=== PATIENT | male | born 1940 | race Caucasian/White ===

== ENCOUNTER 2024-07-26 19:12 | Inpatient (IN) ==
[2024-07-26 20:55] LABS: Basophils # (auto) 0.02 K/uL (0.00-0.20); Basophils % (auto) 0.4 %; Eosinophils # (auto) 0.07 K/uL (0.00-0.50); Eosinophils % (auto) 1.3 %; Hematocrit (blood only) 41.3 % (42.0-52.0); Hemoglobin 13.8 g/dl (14.0-18.0); Immature Granulocytes # (auto) 0.04 K/uL (0.01-0.20); Immature Granulocytes % (auto) 0.7 %; Mean Corpuscular Hemoglobin 32.2 pg (25.0-34.0); Mean Corpuscular Hgb Conc 33.4 g/dL (32.0-36.0); Mean Corpuscular Volume 96.5 fL (80.0-100.0); Mean Platelet Volume 11.3 fL (9.4-12.4); Monocytes # (auto) 0.69 K/uL (0.11-0.59); Monocytes % (auto) 12.6 %; Neutrophils # (auto) 4.05 K/uL (1.40-6.50); Platelet Count 101 K/uL (130-400); RDW Coefficient of Variation 13.3 % (11.5-14.5); RDW Standard Deviation 47.6 fL (36.4-46.3); Red Blood Count 4.28 M/uL (4.70-6.10); White Blood Count 5.47 K/ul (4.8-10.8)
[2024-07-26 21:10] LABS: BUN Creatinine Ratio 16.3 (10-20); Calcium 8.6 mg/dl (8.6-10.3); Creatinine Clr Calc Pharmacy 32.2 ml/min; Potassium 4.5 mmol/L (3.5-5.1)
--- NOTE | 2024-07-26 21:22 | XRay Report ---
Exam(s): XR HIP + PELVIS, 1 view EXAM: XR Left Hip With Pelvis When Performed, 2 or 3 Views CLINICAL HISTORY: hip fx. TECHNIQUE: Two or three views of the left hip with pelvis when performed. COMPARISON: No relevant prior studies available. FINDINGS: Bones/joints: Bilateral hip arthroplasties noted. No pelvic bone fracture identified. The left femoral stem component is well-seated in the proximal femur. There is a fracture involving the intertrochanteric region on the lateral projection image anteriorly and posteriorly. The intramedullary component extends 13.5 cm beyond the margin of the fracture. No dislocation. Soft tissues: Unremarkable. Incidental regional arterial calcification. IMPRESSION: 1. The left femoral stem component is well-seated in the proximal femur. There is a fracture involving the intertrochanteric region on the lateral projection image anteriorly and posteriorly. The intramedullary component extends 13.5 cm beyond the margin of the fracture. 2. Bilateral total hip arthroplasties. No dislocation. No pelvic bone fractures. Electronically signed by: Edwin Prabhakar MD 07/26/24 21:21 PM
--- NOTE | 2024-07-26 22:10 | History & Physical Report ---
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 Patient did not hit his head. Has significant pain on moving his left hip. Denies any headache. No sore throat or cough. Afebrile. No nausea. No chest pain or shortness of breath. No abdominal pain. Normal bowel and bladder movements. Before this episode he was ambulating okay. Closed fracture of left hip Status post mechanical fall Ct Scan: A left total hip arthroplasty is noted. There is a fracture involving the anterior cortex of the proximal femoral metaphysis. The intramedullary component is well-seated without loosening. The intramedullary femoral stem component extends approximately 10 cm distal to the margin of the fracture Pain control N.p.o. Gentle fluids Will hold Xarelto Ortho consult in a.m. for further recommendation CKD Creatinine is 2 Do not have baseline thinks he has chronically kidney disease but not sure Will follow repeat labs If any concern will get renal ultrasound and nephro consult Hypertension On amlodipine BPH On Flomax and finasteride Hyperlipidemia Fenofibrate Hypothyroidism On Synthyroid History of factor V deficiency History of DVTs ,last was several years ago Currently holding Xarelto DVT prophylaxis As per Ortho Disposition Medical floor Full code. 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 Patient did not hit his head. Has significant pain on moving his left hip. Denies any headache. No sore throat or cough. Afebrile. No nausea. No chest pain or shortness of breath. No abdominal pain. Normal bowel and bladder movements. Before this episode he was ambulating okay. Past medical history. As mentioned above Past surgical history. Bilateral hip surgeries Social history. Smokes cigars 1 or 2 daily for many years. Drinks 1 beer every day. Family history. Father had diabetes and heart disease. Allergies Allergy/AdvReac Type Severity Reaction Status Date / Time No Known Allergies Allergy Unverified 07/26/24 23:29 Home Medications Medication Instructions Recorded Confirmed Type amlodipine 10 mg tablet (Norvasc) 5 mg PO DAILY 07/26/24 07/26/24 History fenofibrate micronized 134 mg 134 mg PO DAILY 07/26/24 07/26/24 History capsule levothyroxine 100 mcg tablet 100 mcg PO DAILY 07/26/24 07/26/24 History rivaroxaban 10 mg tablet (Xarelto) 10 mg PO HS 07/26/24 07/26/24 History tamsulosin 0.4 mg capsule 0.4 mg PO BID 07/26/24 07/26/24 History finasteride 5 mg tablet 5 mg PO DAILY 07/27/24 07/27/24 History Past Med/Surg History Problem List (Updated 07/27/24 @ 00:51 by Lorena Rivera MD) Closed fracture of left hip (Acute) Social History Smoking Status: Current every day smoker Tobacco Type: Cigars Cigarettes Per Day: "couple" 2-3; Second Hand Exposure: Yes; Do You Dip or Chew Tobacco: No; Tobacco Cessation Education Requested by Patient: No Hx Alcohol Use: Yes Alcohol type: beer and wine Hx Substance Use: No Preferred Language: Kiswahili Communication Ability: Effective Director Of Education Required: No Beliefs That Will Affect Care: None Current Living Situation: Spouse Current Living Situation Comment: lives in [place] with Other Information That Helps Us Care for You: No Feels Safe at Home: Yes Assistive Devices: Cane Assistive Devices Comment: has b/l hearings aide, sent home with Review of Systems Review of Systems: All systems reviewed & are unremarkable except as noted in HPI & below Physical Exam Physical Exam: General- Not in distress Head- atraumatic Eyes- PERRL, EOMI. ENT- oropharynx clear Neck- supple, no JVD, no adenopathy. Lungs- clear to auscultation no wheezing or crackles Heart- regular rate and rhythm; no murmur, no gallop. Abdomen- normal bowel sounds, soft, nontender, no distension Extremities- no pretibial edema,no erythema seen, painful left leg movements Neuro- alert, oriented PERRL, EOMI; no facial palsy; no dysarthria; Results & Data Results & Data Vital Signs (Past 12 Hours) Vital Signs Temp Pulse Pulse Resp BP BP Pulse Ox 07/26/24 20:58 56 L 07/26/24 20:48 56 L 16 145/70 H 97 07/26/24 19:20 37.7 C H 65 20 163/79 H 100 O2 Del Method 07/26/24 20:58 07/26/24 20:48 Room Air 07/26/24 19:20 Room Air Diagnostic Findings Laboratory Results WBC 5.47 K/ul (4.8-10.8) 07/26/24 20:24 RBC 4.28 M/uL (4.70-6.10) L 07/26/24 20:24 Hgb 13.8 g/dl (14.0-18.0) L 07/26/24 20:24 Hct 41.3 % (42.0-52.0) L 07/26/24 20:24 MCV 96.5 fL (80.0-100.0) 07/26/24 20:24 MCH 32.2 pg (25.0-34.0) 07/26/24 20:24 MCHC 33.4 g/dL (32.0-36.0) 07/26/24 20:24 RDW Std Deviation 47.6 fL (36.4-46.3) H 07/26/24 20:24 RDW Coeff of Angeline 13.3 % (11.5-14.5) 07/26/24 20:24 Plt Count 101 K/uL (130-400) L 07/26/24 20:24 MPV 11.3 fL (9.4-12.4) 07/26/24 20:24 Immature Gran % (Auto) 0.7 % 07/26/24 20:24 Neut % (Auto) 74.0 % 07/26/24 20:24 Lymph % (Auto) 11.0 % 07/26/24 20:24 [place] % (Auto) 12.6 % 07/26/24 20:24 Eos % (Auto) 1.3 % 07/26/24 20:24 Baso % (Auto) 0.4 % 07/26/24 20:24 Neut # (Auto) 4.05 K/uL (1.40-6.50) 07/26/24 20:24 Lymph # (Auto) 0.60 K/uL (1.20-3.40) L 07/26/24 20:24 [place] # (Auto) 0.69 K/uL (0.11-0.59) H 07/26/24 20:24 Eos # (Auto) 0.07 K/uL (0.00-0.50) 07/26/24 20:24 Baso # (Auto) 0.02 K/uL (0.00-0.20) 07/26/24 20:24 Immature Gran # (Auto) 0.04 K/uL (0.01-0.20) 07/26/24 20:24 Sodium 137 mmol/L (136-145) 07/26/24 20:24 Potassium 4.5 mmol/L (3.5-5.1) 07/26/24 20:24 Chloride 103 mmol/L (98-107) 07/26/24 20:24 Carbon Dioxide 27 mmol/L (21-32) 07/26/24 20:24 Anion Gap 7 (3-11) 07/26/24 20:24 BUN 33 mg/dl (6-23) H 07/26/24 20:24 Creatinine 2.02 mg/dl (0.6-1.4) H 07/26/24 20:24 Est Cr Clr Drug Dosing 32.2 ml/min 07/26/24 20:24 eGFR 31.72 07/26/24 20:24 BUN/Creatinine Ratio 16.3 (10-20) 07/26/24 20:24 Glucose 105 mg/dl (70-99(Fasting)) H 07/26/24 20:24 Calcium 8.6 mg/dl (8.6-10.3) 07/26/24 20:24 Impressions Hip/Pelvis X-Ray 07/26/24 19:22 Exam(s): XR HIP + PELVIS, 1 view EXAM: XR Left Hip With Pelvis When Performed, 2 or 3 Views CLINICAL HISTORY: hip fx. TECHNIQUE: Two or three views of the left hip with pelvis when performed. COMPARISON: No relevant prior studies available. FINDINGS: Bones/joints: Bilateral hip arthroplasties noted. No pelvic bone fracture identified. The left femoral stem component is well-seated in the proximal femur. There is a fracture involving the intertrochanteric region on the lateral projection image anteriorly and posteriorly. The intramedullary component extends 13.5 cm beyond the margin of the fracture. No dislocation. Soft tissues: Unremarkable. Incidental regional arterial calcification. IMPRESSION: 1. The left femoral stem component is well-seated in the proximal femur. There is a fracture involving the intertrochanteric region on the lateral projection image anteriorly and posteriorly. The intramedullary component extends 13.5 cm beyond the margin of the fracture. 2. Bilateral total hip arthroplasties. No dislocation. No pelvic bone fractures. Electronically signed by: Edwin Prabhakar MD 07/26/24 21:21 PM Code Status & VTE Plan VTE Prophylaxis Plan VTE Prophylaxis will be ordered: Yes
--- NOTE | 2024-07-26 22:24 | CT Scan Report ---
Exam(s): CT LEFT HIP Without Contrast EXAM: CT Left Lower Extremity Without Intravenous Contrast, Hip CLINICAL HISTORY: fall, hip fracture, hardware. TECHNIQUE: Axial computed tomography images of the left hip without intravenous contrast. Automated exposure control was utilized for the study. A dose lowering technique was utilized adhering to the principles of ALARA. COMPARISON: No relevant prior studies available. FINDINGS: Bones/joints: A left total hip arthroplasty is noted. There is a fracture involving the anterior cortex of the proximal femoral metaphysis. The intramedullary component is well-seated without loosening. The intramedullary femoral stem component extends approximately 10 cm distal to the margin of the fracture (series 300; image 29). The femoral head component is well aligned with the acetabular component the acetabular component is intact. No definite left pelvic bone fracture. Soft tissues: No significant overlying soft tissue traumatic injury. No radiopaque foreign body or subcutaneous emphysema. IMPRESSION: A left total hip arthroplasty is noted. There is a fracture involving the anterior cortex of the proximal femoral metaphysis. The intramedullary component is well-seated without loosening. The intramedullary femoral stem component extends approximately 10 cm distal to the margin of the fracture (series 300; image 29). Electronically signed by: Edwin Prabhakar MD 07/26/24 22:23 PM
--- NOTE | 2024-07-26 22:53 | Emergency Department Note ---
Impression & Plan Closed fracture of left hip ED Provider Note NAME: ROSELINE WANG AGE: 84 SEX: M : 1940 ARRIVES VIA: Ambulance INFORMANT: Patient, ED PROVIDER(S): Lorena Rivera MD CHIEF COMPLAINT: Fall, left hip pain HPI: This an 84-year-old male presenting for left hip pain. Patient is visiting for [place] and was playing with his grandkids. He tripped on the carpet and fell onto his left hip. He is on Xarelto. He is not report any head injury, confusion nausea vomiting or LOC. He notes his hip does hurt. Able to move the hip but notes it is painful. He is unable to bear weight. ROS: See above HPI for pertinent positives & negatives. A total of 10 systems reviewed and were otherwise negative. PAST MEDICAL HISTORY: See Below PAST SURGICAL HISTORY: See Below FAMILY HISTORY: See Below SOCIAL HISTORY: See Below HOME MEDICATIONS: See Below ALLERGIES: See Below VITALS: See Below PHYSICAL EXAMINATION: General: resting comfortably in no acute distress Head: Normocephalic and atraumatic Eyes: Normal inspection, extraocular muscles intact Ear, nose, throat: Normal external exam Neck: Normal range of motion Respiratory: lungs clear to auscultation bilaterally Cardiovascular: Regular rate/rhythm, no murmur GI: soft, nontender, no guarding or rebound Extremities: Left hip tenderness to palpation, full range of motion with pain, 2+ pulses Neuro: The patient awake and alert, appropriately conversive, no focal deficits, symmetric faces Skin: Warm, dry, and intact MEDICAL DECISION MAKING: This is a 84-year-old male present for left hip pain. Consider hip fracture. Will do left hip x-ray. -X-ray as Independently interpreted by me does reveal a left hip fracture around the hardware, nondisplaced -Discussed care with Dr. Platt, orthopedic surgeon, who recommends CT of the hip for this acute fracture. Nonweightbearing and admission -Blood work is reviewed showing no significant leukocytosis or significant anemia. Creatinine 2.02 without clear baseline. -Patient [facility] with Dr. Angeles[facility] Differential diagnosis: Hip fracture, hematoma, pelvic fracture Independent History obtained from: Son, Diagnostics interpreted by me: ECG: None Cardiac Monitoring: An order was placed for continuous cardiac monitoring. The monitor shows a rate of 60 with sinus rhythm. Past Med/Surg History Problem List (Updated 07/27/24 @ 00:51 by Lorena Rivera MD) Closed fracture of left hip (Acute) Social History Smoking Status: Current every day smoker Tobacco Type: Cigars Cigarettes Per Day: "couple" 2-3; Second Hand Exposure: Yes; Do You Dip or Chew Tobacco: No; Tobacco Cessation Education Requested by Patient: No Hx Alcohol Use: Yes Alcohol type: beer and wine Hx Substance Use: No Preferred Language: Korean Communication Ability: Effective Oil Gauger Required: No Beliefs That Will Affect Care: None Current Living Situation: Spouse Current Living Situation Comment: lives in [place] with Other Information That Helps Us Care for You: No Feels Safe at Home: Yes Assistive Devices: Cane Assistive Devices Comment: has b/l hearings aide, sent home with Allergies Allergies Allergy/AdvReac Type Severity Reaction Status Date / Time No Known Allergies Allergy Unverified 07/26/24 23:29 Home Meds Home Medications Medication Instructions Recorded Confirmed amlodipine 10 mg tablet (Norvasc) 5 mg PO DAILY 07/26/24 07/26/24 fenofibrate micronized 134 mg 134 mg PO DAILY 07/26/24 07/26/24 capsule fenofibric acid (choline) 135 mg 5 mg PO DAILY 07/26/24 07/26/24 capsule,delayed release levothyroxine 100 mcg tablet 100 mcg PO DAILY 07/26/24 07/26/24 rivaroxaban 10 mg tablet (Xarelto) 10 mg PO HS 07/26/24 07/26/24 tamsulosin 0.4 mg capsule 0.4 mg PO BID 07/26/24 07/26/24 Results & Data (ED) Vital Signs Vital Signs - 24 hr 07/26/24 19:20 07/26/24 20:48 07/26/24 20:58 Temperature 37.7 C H Temperature Source Oral Pulse Rate 65 56 L Pulse Rate [Apical] 56 L Respiratory Rate 20 16 Respiratory Effort / Characteristics Non-Labored Spontaneous Respiratory Depth Normal Respiratory Pattern Regular Blood Pressure 163/79 H Blood Pressure [Right Arm] 145/70 H Blood Pressure Mean 107 Blood Pressure Mean [Right Arm] 95 Blood Pressure Position [Right Arm] Lying Pulse Oximetry 100 97 Oxygen Delivery Method Room Air Room Air Sepsis Recent Fever Within 48 Hours Yes Sepsis New/Unexplained Change in Mental Status No Sepsis Action Taken by Nursing No Action Required Laboratory Data 07/26/24 20:24 07/26/24 20:24 Lab Results 07/26/24 Range/Units 20:24 WBC 5.47 (4.8-10.8) K/ul RBC 4.28 L (4.70-6.10) M/uL Hgb 13.8 L (14.0-18.0) g/dl Hct 41.3 L (42.0-52.0) % MCV 96.5 (80.0-100.0) fL MCH 32.2 (25.0-34.0) pg MCHC 33.4 (32.0-36.0) g/dL RDW Std Deviation 47.6 H (36.4-46.3) fL RDW Coeff of Angeline 13.3 (11.5-14.5) % Plt Count 101 L (130-400) K/uL MPV 11.3 (9.4-12.4) fL Immature Gran % (Auto) 0.7 % Neut % (Auto) 74.0 % Lymph % (Auto) 11.0 % [place] % (Auto) 12.6 % Eos % (Auto) 1.3 % Baso % (Auto) 0.4 % Neut # (Auto) 4.05 (1.40-6.50) K/uL Lymph # (Auto) 0.60 L (1.20-3.40) K/uL [place] # (Auto) 0.69 H (0.11-0.59) K/uL Eos # (Auto) 0.07 (0.00-0.50) K/uL Baso # (Auto) 0.02 (0.00-0.20) K/uL Immature Gran # (Auto) 0.04 (0.01-0.20) K/uL Sodium 137 (136-145) mmol/L Potassium 4.5 (3.5-5.1) mmol/L Chloride 103 (98-107) mmol/L Carbon Dioxide 27 (21-32) mmol/L Anion Gap 7 (3-11) BUN 33 H (6-23) mg/dl Creatinine 2.02 H (0.6-1.4) mg/dl Est Cr Clr Drug Dosing 32.2 ml/min eGFR 31.72 BUN/Creatinine Ratio 16.3 (10-20) Glucose 105 H (70-99(Fasting)) mg/dl Calcium 8.6 (8.6-10.3) mg/dl Administered Medications Sodium Chloride (Nss) 1,000 mls @ 100 mls/hr IV .Q10H ELIA Stop: 07/27/24 19:25 Last Admin: 07/26/24 23:50 Dose: 100 mls/hr Documented By: [facility] Miscellaneous (Order Awaiting Action: Fenofibrate Micronized 134 Mg Capsule) 1 each N/A QS ELIA Stop: 08/26/24 00:00 Last Admin: 07/27/24 00:00 Dose: Not Given Documented By: [facility] Imaging Data Radiologist's Impression: Hip/Pelvis X-Ray 07/26/24 19:22 Exam(s): XR HIP + PELVIS, 1 view EXAM: XR Left Hip With Pelvis When Performed, 2 or 3 Views CLINICAL HISTORY: hip fx. TECHNIQUE: Two or three views of the left hip with pelvis when performed. COMPARISON: No relevant prior studies available. FINDINGS: Bones/joints: Bilateral hip arthroplasties noted. No pelvic bone fracture identified. The left femoral stem component is well-seated in the proximal femur. There is a fracture involving the intertrochanteric region on the lateral projection image anteriorly and posteriorly. The intramedullary component extends 13.5 cm beyond the margin of the fracture. No dislocation. Soft tissues: Unremarkable. Incidental regional arterial calcification. IMPRESSION: 1. The left femoral stem component is well-seated in the proximal femur. There is a fracture involving the intertrochanteric region on the lateral projection image anteriorly and posteriorly. The intramedullary component extends 13.5 cm beyond the margin of the fracture. 2. Bilateral total hip arthroplasties. No dislocation. No pelvic bone fractures. Electronically signed by: Edwin Prabhakar MD 07/26/24 21:[address] 07/26/24 21:07 Exam(s): CT LEFT HIP Without Contrast EXAM: CT Left Lower Extremity Without Intravenous Contrast, Hip CLINICAL HISTORY: fall, hip fracture, hardware. TECHNIQUE: Axial computed tomography images of the left hip without intravenous contrast. Automated exposure control was utilized for the study. A dose lowering technique was utilized adhering to the principles of ALARA. COMPARISON: No relevant prior studies available. FINDINGS: Bones/joints: A left total hip arthroplasty is noted. There is a fracture involving the anterior cortex of the proximal femoral metaphysis. The intramedullary component is well-seated without loosening. The intramedullary femoral stem component extends approximately 10 cm distal to the margin of the fracture (series 300; image 29). The femoral head component is well aligned with the acetabular component the acetabular component is intact. No definite left pelvic bone fracture. Soft tissues: No significant overlying soft tissue traumatic injury. No radiopaque foreign body or subcutaneous emphysema. IMPRESSION: A left total hip arthroplasty is noted. There is a fracture involving the anterior cortex of the proximal femoral metaphysis. The intramedullary component is well-seated without loosening. The intramedullary femoral stem component extends approximately 10 cm distal to the margin of the fracture (series 300; image 29). Electronically signed by: Edwin Prabhakar MD 07/26/24 22:23 PM Discharge Plan Visit Data Chief Complaint: Fall Stated Complaint: fall ED Provider: Lorena Rivera Discharge Problem: Closed fracture of left hip Patient Disposition: Admitted As Inpatient Discharge Instructions Interventions: ED Discharge Assessment Last Done: 07/26/24 22:53
[2024-07-26] MEDS ORDERED: HYDROmorphone INJ 0.5 MG/0.5 ML SYR IV PRN (23:26)
[2024-07-26] MEDS ORDERED: POLYETHYLENE (MIRALAX) 17 GM PACK PO PRN (23:26)
[2024-07-26] MEDS: SODIUM CHLORIDE 0.9% 1,000 ML IV SCH (23:50)
[2024-07-27] MEDS: LEVOTHYROXINE SODIUM 100 MCG TABLET PO SCH (05:33)
[2024-07-27 08:09] LABS: BUN Creatinine Ratio 17.2 (10-20); Calcium 8.2 mg/dl (8.6-10.3); Creatinine Clr Calc Pharmacy 40.9 ml/min; Magnesium 1.6 mg/dl (1.7-2.4); Potassium 3.6 mmol/L (3.5-5.1)
--- NOTE | 2024-07-27 08:37 | XRay Report ---
XR chest 1V portable HISTORY: 84 years-old Male preop? Preoperative exam. COMPARISON: None TECHNIQUE: AP view the chest FINDINGS: Cardiomediastinal and hilar silhouettes are within normal limits. No pneumothorax, pleural effusion, airspace consolidation or overt pulmonary edema. There is mild coarsening of interstitium which is li wild on a chronic basis. Spondylitic spurring of the spine. IMPRESSION: No acute process. ACT 112: Negative or not required by law. The above report was generated using voice recognition software. It may contain grammatical, syntax o r spelling errors. Electronically signed by: Stephon Ceballos M.D. 07/27/2024 8:36 AM
[2024-07-27 08:41] LABS: Hematocrit (blood only) 37.7 % (42.0-52.0); Mean Corpuscular Hemoglobin 33.1 pg (25.0-34.0); Mean Corpuscular Hgb Conc 34.5 g/dL (32.0-36.0); Mean Corpuscular Volume 95.9 fL (80.0-100.0); RDW Coefficient of Variation 13.1 % (11.5-14.5); RDW Standard Deviation 46.9 fL (36.4-46.3); Red Blood Count 3.93 M/uL (4.70-6.10); White Blood Count 5.11 K/ul (4.8-10.8)
[2024-07-27 08:44] LABS: Basophils # (auto) 0.02 K/uL (0.00-0.20); Basophils % (auto) 0.4 %; Eosinophils # (auto) 0.08 K/uL (0.00-0.50); Eosinophils % (auto) 1.6 %; Immature Granulocytes # (auto) 0.02 K/uL (0.01-0.20); Immature Granulocytes % (auto) 0.4 %; Lymphocytes # (auto) 0.93 K/uL (1.20-3.40); Lymphocytes % (auto) 18.2 %; Mean Platelet Volume 11.1 fL (9.4-12.4); Monocytes # (auto) 0.72 K/uL (0.11-0.59); Monocytes % (auto) 14.1 %; Neutrophils # (auto) 3.34 K/uL (1.40-6.50); Neutrophils % (auto) 65.3 %; Platelet Count 98 K/uL (130-400); Platelet Estimate Decreased (Normal)
[2024-07-27] MEDS: amLODIPine BESYLATE 5 MG TAB PO SCH (09:04)
[2024-07-27] MEDS: MAGNESIUM SULFATE / D5W 1 GM/100 ML BAG IV SCH (10:19)
--- NOTE | 2024-07-27 10:22 | Orthopedic Consultation ---
Date of Consultation July 27, 2024 Assessment & Plan (1) Trochanteric fracture of left femur: The patient and his son were educated regarding today's findings. I reviewed the imaging with both of them. He has good positioning at this time. No surgical intervention is required. He may be weightbearing as tolerated on the leg. Given his current level discomfort, I do not expect him to start with much weight. He may start with PT/OT. He will likely require placement at a [facility] facility or rehab hospital. He is unsure if this should be done closer to home in [place] or here locally. I think that it would be best to start here and perhaps transition to [place] for home health once he is stronger and can ambulate more reliably. Continue with ice on the area. Continue with oral pain medication. He will need to start his Xarelto check with Dr. Platt regarding appropriate start date. Continue his usual total precautions. History of Present Illness Reason for Consultation: Left hip trochanteric fracture Attending Physician: Charlie Galaviz MD History of Present Illness This 84-year-old male is seen today in his room. His son is in attendance. The patient was visiting from [place] for holiday, and was chasing his grandkids through the house yesterday. He tripped on a rug and fell onto his left side. There was immediate onset of pain and he was unable to bear weight. He was brought to the ED for evaluation. Radiographic imaging of the left hip was obtained along with CT scan. It showed a nondisplaced periprosthetic trochanteric fracture. He was admitted for pain control and ambulation difficulty. The patient states his left hip replacement was done in 2014 in the ER. He also has a right total hip arthroplasty done in 2003. He had no problems with the left hip until yesterday. He continues to have difficulty with motion. He denies any numbness or tingling. No other areas of discomfort. Allergies Allergy/AdvReac Type Severity Reaction Status Date / Time No Known Allergies Allergy Unverified 07/26/24 23:29 Home Medications Medication Instructions Recorded Confirmed Type amlodipine 10 mg tablet (Norvasc) 5 mg PO DAILY 07/26/24 07/26/24 History fenofibrate micronized 134 mg 134 mg PO DAILY 07/26/24 07/26/24 History capsule levothyroxine 100 mcg tablet 100 mcg PO DAILY 07/26/24 07/26/24 History rivaroxaban 10 mg tablet (Xarelto) 10 mg PO HS 07/26/24 07/26/24 History tamsulosin 0.4 mg capsule 0.4 mg PO BID 07/26/24 07/26/24 History finasteride 5 mg tablet 5 mg PO DAILY 07/27/24 07/27/24 History Patient History Medical History (Updated 07/27/24 @ 10:19 by Romeo Lao PA-C) Hypothyroidism BPH (benign prostatic hyperplasia) Factor V deficiency Surgical History (Updated 07/27/24 @ 10:14 by Romeo Lao PA-C) H/O total hip arthroplasty bilateral R 2003, L 2014 Family History (Updated 07/27/24 @ 10:14 by Romeo Lao PA-C) Other No pertinent family history Social History Smoking Status: Current every day smoker Tobacco Type: Cigars Cigarettes Per Day: "couple" 2-3; Second Hand Exposure: Yes; Do You Dip or Chew Tobacco: No; Tobacco Cessation Education Requested by Patient: No Hx Alcohol Use: Yes Alcohol type: beer and wine Hx Substance Use: No Preferred Language: Northern Irish Communication Ability: Effective Boomswing Operator Required: No Beliefs That Will Affect Care: None Current Living Situation: Spouse Current Living Situation Comment: lives in [place] with Other Information That Helps Us Care for You: No Feels Safe at Home: Yes Assistive Devices: Cane Assistive Devices Comment: has b/l hearings aide, sent home with Review of Systems Review of Systems: All systems reviewed & are unremarkable except as noted in HPI & below Physical Exam Physical Exam: General: Well-developed, well-nourished, elderly male, in no acute distress. No obvious discomfort. Sitting in the bed. Alert and oriented. Skin: Warm dry with good turgor. No rashes. He has ecchymosis present over the left gluteus. No open wounds. No erythema. No significant edema. Musculoskeletal: Left hip evaluation reveals no obvious asymmetry or deformity. He has focal discomfort with palpation over the greater trochanter, IT band, and quadricep musculature. No pain with palpation around his left knee lower leg, or ankle. He has supple motion of the left ankle and toes. Strength is 5/5 for resisted flexion and extension as well as inversion. There is limited knee motion secondary to pain at the hip. He also has limited hip motion for flexion and extension secondary to hip discomfort. He has very little discomfort with logrolling of the hip. Neurologic: Gross sensation is intact across the left leg by soft touch. Peripheral pulses are 2+. Results & Data Vital Signs (Past 12 Hours) Vital Signs Temp Pulse Pulse Resp BP BP Pulse Ox 07/27/24 07:20 36.8 C 57 L 18 139/65 97 07/27/24 00:08 07/26/24 23:26 36.8 C 60 17 165/68 H 97 07/26/24 22:53 07/26/24 22:53 90 18 137/65 96 O2 Del Method 07/27/24 07:20 Room Air 07/27/24 00:08 Room Air 07/26/24 23:26 Room Air 07/26/24 22:53 Room Air 07/26/24 22:53 Room Air Laboratory Results CBC obtained today shows a normal white count of 5.11. H&H of 13.0 and 37.3. Low platelets have 98,000. PRP shows normal sodium and potassium as well as chloride. BUN of 26 with creatinine 1.5. Glucose normal at 99. Magnesium normal at 1.6. Diagnostic Findings Regular radiographic imaging obtained overnight shows a minimally displaced trochanteric fracture. There is no abnormality of the implant itself. He appears to have a constrained liner, but not on the other side. CT scan imaging of the pelvis and hip was also reviewed. It confirms a minimally displaced trochanteric fracture with involvement of the femoral shaft. There is no abnormality of the implant itself. (1) Trochanteric fracture of left femur Encounter type: initial encounter Fracture type: closed Qualified Code(s): S72.102A - Unspecified trochanteric fracture of left femur, initial encounter for closed fracture
--- NOTE | 2024-07-27 11:12 | Electrocardiogram Report ---
Test Reason : Blood Pressure : */* mmHG Vent. Rate : 62 BPM Atrial Rate : 62 BPM P-R Int : 168 ms QRS Dur : 88 ms QT Int : 420 ms P-R-T Axes : 51 -6 32 degrees QTcB Int : 426 ms Normal sinus rhythm Low voltage QRS Borderline ECG No previous ECGs available Confirmed by Guerrero Turner ([id number]) on 07/27/2024 11:12:22 AM Referred By: REFERRED SELF Confirmed By: Guerrero Turner
[2024-07-27] MEDS: FINASTERIDE 5 MG TAB PO SCH (11:37)
--- NOTE | 2024-07-27 13:21 | Hospitalist Progress Note ---
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 Patient did not hit his head. Has significant pain on moving his left hip. Denies any headache. No sore throat or cough. Afebrile. No nausea. No chest pain or shortness of breath. No abdominal pain. Normal bowel and bladder movements. Before this episode he was ambulating okay. Closed fracture of left hip Status post mechanical fall Ct Scan: A left total hip arthroplasty is noted. There is a fracture involving the anterior cortex of the proximal femoral metaphysis. The intramedullary component is well-seated without loosening. The intramedullary femoral stem component extends approximately 10 cm distal to the margin of the fracture Pain control N.p.o. Gentle fluids Will hold Xarelto Ortho consult in a.m. for further recommendation CKD Creatinine is 2 Do not have baseline thinks he has chronically kidney disease but not sure Will follow repeat labs If any concern will get renal ultrasound and nephro consult Hypertension On amlodipine BPH On Flomax and finasteride Hyperlipidemia Fenofibrate Hypothyroidism On Synthyroid History of factor V deficiency History of DVTs ,last was several years ago Currently holding Xarelto DVT prophylaxis As per Ortho Disposition Medical floor Full code. Admission and Anticipated Discharge Date Admission Date: July 26, 2024 Physical Exam Physical Exam: General- Not in distress Head- atraumatic Eyes- PERRL, EOMI. ENT- oropharynx clear Neck- supple, no JVD, no adenopathy. Lungs- clear to auscultation no wheezing or crackles Heart- regular rate and rhythm; no murmur, no gallop. Abdomen- normal bowel sounds, soft, nontender, no distension Extremities- no pretibial edema,no erythema seen, painful left leg movements Neuro- alert, oriented PERRL, EOMI; no facial palsy; no dysarthria; Results & Data Results & Data Vital Signs (Past 12 Hours) Vital Signs Temp Pulse Resp BP Pulse Ox O2 Del Method 07/27/24 07:20 36.8 C 57 L 18 139/65 97 Room Air
--- NOTE | 2024-07-27 13:56 | XRay Report ---
XR femur LT 2V routine CLINICAL HISTORY: pain TECHNIQUE: 2 radiographic views of the left femur were obtained. Comparison: Comparison is made to hip radiograph 07/26/2024 FINDINGS: There is no evidence of an acute fracture. Bilateral hip arthroplasties are seen. Vascular calcificat ions are noted. IMPRESSION: Bilateral hip arthroplasties are seen. No acute fracture. ACT 112: Negative or not required by law. Electronically signed by: Nahid Barboza M.D. 07/27/2024 1:55 PM
--- NOTE | 2024-07-27 14:14 | Hospitalist Progress Note ---
Date of Service July 27, 2024 Assessment & Plan (1) Closed fracture of left hip: Plan: 84 yo M w/ PMH of HTN, factor V deficiency, DVTs, BPH, HLD, hypothyroidism presents with mechanical fall and found to have a left periprosthetic fracture. Patient did not hit his head. Before this episode he was ambulating okay. He is being managed for the following: Closed fracture of left hip Status post mechanical fall Admitting CT scan of the left hip with fracture involving anterior cortex of the proximal femur, intramedullary component is well-seated without loosening. Continue with pain management, continue bowel regimen. Given history of actively deficiency, resumed Xarelto from today with close monitoring of H&H. Discussed with orthopedics, partial weight-bear approximately 50% using crutches or walker. No operative intervention at this time. PT/OT, possible DC to rehab. Follow-up with Ortho on discharge. Chronic kidney disease: Unknown status and unknown baseline. Admitting creatinine of 2.0, creatinine today 1.51. Will continue to follow creatinine daily or as needed. Other chronic medical conditions: Continue with/resume home meds as when able. Hypertension, continue home amlodipine BPH, continue home Flomax and finasteride Hyperlipidemia, continue home fenofibrate Hypothyroidism, continue home Synthroid Factor V deficiency, continue Xarelto DVT prophylaxis: Patient on Xarelto, monitor H&H. Disposition: PT/OT, CM to assist with DC planning. Full code Admission and Anticipated Discharge Date Admission Date: July 26, 2024 Subjective Patient was seen and examined at bedside. Patient was lying in bed, on room air, NAD. Patient reports left hip pain fairly under control, denies any febrile illness or flulike illness in the recent past. Patient denies any sore throat or chest pain or shortness of breath or pain / burning while passing urine. Physical Exam Physical Exam: General- Not in distress Head- atraumatic Eyes- PERRL, EOMI. ENT- oropharynx clear Neck- supple, no JVD, no adenopathy. Lungs- clear to auscultation no wheezing or crackles Heart- regular rate and rhythm; no murmur, no gallop. Abdomen- normal bowel sounds, soft, nontender, no distension Extremities- no pretibial edema,no erythema seen, painful left leg movements Neuro- alert, oriented PERRL, EOMI; no facial palsy; no dysarthria; Results & Data Results & Data Vital Signs (Past 12 Hours) Vital Signs Temp Pulse Resp BP Pulse Ox O2 Del Method 07/27/24 07:20 36.8 C 57 L 18 139/65 97 Room Air
[2024-07-27] MEDS: TAMSULOSIN HCL 0.4 MG CAP PO SCH (14:30)
[2024-07-27 14:42] LABS: Appearance Urine Clear (Clear); Bacteria Urine Automated 4+ (None Seen); Bilirubin Urine Negative (Negative); Blood Urine Negative (Negative); Cast Urine Automated 0-2 /lpf (0-2); Color Urine Yellow; Epithelial Cell Urine Auto 0-2 /hpf (0-2); Glucose Urine UA Negative (Negative); Ketones Urine Negative (Negative); Leukocyte Esterase Urine 2+ (Negative); Nitrite Urine Positive (Negative); Protein Urine Negative (Negative); RBC Urine Automated 0-2 /hpf (0-2); Urobilinogen Urine Negative (Negative); pH Urine 5.5 (4.5-7.5)
[2024-07-27] MEDS: cefTRIAXone SODIUM 2,000 MG/50 ML BAG IV SCH (17:11)
[2024-07-27] MEDS: ADVANCED PROBIOTIC 625 MG CAPSULE PO SCH (17:46)
[2024-07-27] MEDS: DOCUSATE SODIUM 100 MG CAP PO SCH (20:52)
[2024-07-27] MEDS: RIVAROXABAN 10 MG TABLET PO SCH (20:52)
[2024-07-28] MEDS: ACETAMINOPHEN 325 MG TAB PO PRN (08:00)
[2024-07-28 10:02] LABS: Hematocrit (blood only) 35.9 % (42.0-52.0); Hemoglobin 12.3 g/dl (14.0-18.0); Mean Corpuscular Hemoglobin 32.4 pg (25.0-34.0); Mean Corpuscular Hgb Conc 34.3 g/dL (32.0-36.0); Mean Corpuscular Volume 94.5 fL (80.0-100.0); Mean Platelet Volume 11.1 fL (9.4-12.4); Platelet Count 107 K/uL (130-400); RDW Standard Deviation 45.2 fL (36.4-46.3); White Blood Count 5.12 K/ul (4.8-10.8)
[2024-07-28 10:23] LABS: BUN Creatinine Ratio 17.3 (10-20); Calcium 7.8 mg/dl (8.6-10.3); Creatinine Clr Calc Pharmacy 41.2 ml/min; Phosphorus 2.1 mg/dl (2.5-4.9); Potassium 3.8 mmol/L (3.5-5.1)
--- NOTE | 2024-07-28 12:08 | Orthopedic Progress Note ---
Date of Service July 28, 2024 Assessment & Plan (1) Trochanteric fracture of left femur: Plan: The patient and his son were educated regarding today's findings. He has good positioning at this time. No surgical intervention is required. He may be PWB (50%)weightbearing on the leg. He may start with PT/OT. He will likely require placement at a long term facility or rehab hospital. He is unsure if this should be done closer to home in [place] or here locally. Continue with ice on the area. Continue with oral pain medication. He May resume his Xarelto today Continue his usual total precautions. Admission and Anticipated Discharge Date Admission Date: July 26, 2024 Subjective This 84-year-old male seen this morning for follow-up of left hip pain. X-rays performed of his femur showed no acute fracture in the area of discomfort. He does have documented periprosthetic fracture of the left greater trochanter. States that he has had difficulty getting up with physical therapy. He states that he has discomfort when he sits on the edge of the bed and lets his feet dangle. He denies chest pain, shortness of breath, fever, chills, sweats, nausea, vomiting, diarrhea or difficulty voiding. States his only issue is that he has been unable to move his bowels but has been passing gas. Review of Systems Review of Systems: All systems reviewed & are unremarkable except as noted in Subjective Physical Exam Physical Exam: Left lower extremity: Patient has tenderness palpation over the lateral aspect of the hip over the greater trochanter as well as over the anterolateral medial aspect of the distal femur. He does tolerate logroll testing. He has great difficulty performing a straight leg raise test but is able to actively dorsi and plantarflex foot. He tolerates knee flexion to about 60 degrees passively. His calf is soft and supple and nontender to palpation. He is able to detect light sensation to touch over the pads of his digits. His peripheral pulses are 1+. He is neurovascularly intact. Results & Data Vital Signs (Past 12 Hours) Vital Signs Temp Pulse Resp BP Pulse Ox O2 Del Method 07/28/24 07:35 Room Air 07/28/24 07:33 36.8 C 63 18 131/72 97 Room Air Diagnostic Findings Laboratory Results WBC 5.12 K/ul (4.8-10.8) 07/28/24 09:28 RBC 3.80 M/uL (4.70-6.10) L 07/28/24 09:28 Hgb 12.3 g/dl (14.0-18.0) L 07/28/24 09: Hct 35.9 % (42.0-52.0) L 07/28/24 09:28 MCV 94.5 fL (80.0-100.0) 07/28/24 09: MCH 32.4 pg (25.0-34.0) 07/28/24 09: MCHC 34.3 g/dL (32.0-36.0) 07/28/24 09: RDW Std Deviation 45.2 fL (36.4-46.3) 07/28/24: RDW Coeff of [place] 13.0 % (11.5-14.5) 07/28/24 09: Plt Count 107 K/uL (130-400) L 07/28/24 09: MPV 11.1 fL (9.4-12.4) 07/28/24 09:28 Immature Gran % (Auto) 0.4 % 07/27/24 07:05 Neut % (Auto) 65.3 % 07/27/24 07:05 Lymph % (Auto) 18.2 % 07/27/24 07:05 [place] % (Auto) 14.1 % 07/27/24 07:05 Eos % (Auto) 1.6 % 07/27/24 07:05 Baso % (Auto) 0.4 % 07/27/24 07:05 Neut # (Auto) 3.34 K/uL (1.40-6.50) 07/27/24 07:05 Lymph # (Auto) 0.93 K/uL (1.20-3.40) L 07/27/24 07:05 [place] # (Auto) 0.72 K/uL (0.11-0.59) H 07/27/24 07:05 Eos # (Auto) 0.08 K/uL (0.00-0.50) 07/27/24 07:05 Baso # (Auto) 0.02 K/uL (0.00-0.20) 07/27/24 07:05 Immature Gran # (Auto) 0.02 K/uL (0.01-0.20) 07/27/24 07:05 Platelet Estimate Decreased (Normal) L 07/27/24 07:05 Sodium 134 mmol/L (136-145) L 07/28/24 09:28 Potassium 3.8 mmol/L (3.5-5.1) 07/28/24 09:28 Chloride 103 mmol/L (98-107) 07/28/24 09:28 Carbon Dioxide 26 mmol/L (21-32) 07/28/24 09:28 Anion Gap 5 (3-11) 07/28/24 09:28 BUN 26 mg/dl (6-23) H 07/28/24 09:28 Creatinine 1.50 mg/dl (0.6-1.4) H 07/28/24 09:28 Est Cr Clr Drug Dosing 41.2 ml/min 07/28/24 09:28 eGFR 45.34 07/28/24 09:28 BUN/Creatinine Ratio 17.3 (10-20) 07/28/24 09:28 Glucose 152 mg/dl (70-99(Fasting)) H 07/28/24 09:28 Calcium 7.8 mg/dl (8.6-10.3) L 07/28/24 09:28 Phosphorus 2.1 mg/dl (2.5-4.9) L 07/28/24 09:28 Magnesium 2.0 mg/dl (1.7-2.4) 07/28/24 09:28 Urine Color Yellow 07/27/24 14:32 Urine Appearance Clear (Clear) 07/27/24 14:32 Urine pH 5.5 (4.5-7.5) 07/27/24 14:32 Ur Specific [place] 1.010 (1.000-1.030) 07/27/24 14:32 Urine Protein Negative (Negative) 07/27/24 14:32 Urine Glucose (UA) Negative (Negative) 07/27/24 14:32 Urine Ketones Negative (Negative) 07/27/24 14:32 Urine Blood Negative (Negative) 07/27/24 14: Urine Nitrite Positive (Negative) A 07/27/24 14:32 Urine Bilirubin Negative (Negative) 07/27/24 14: Urine Urobilinogen Negative (Negative) 07/27/24 14:32 Ur Leukocyte Esterase 2+ (Negative) H 07/27/24 14:32 Urine WBC (Auto) 11-20 /hpf (0-5) H 07/27/24 14:32 Urine RBC (Auto) 0-2 /hpf (0-2) 07/27/24 14:32 U Hyaline Cast (Auto) 0-2 /lpf (0-2) 07/27/24 14:32 U Epithel Cells (Auto) 0-2 /hpf (0-2) 07/27/24 14:32 Urine Bacteria (Auto) 4+ (None Seen) H 07/27/24 14:32 Impressions Hip/Pelvis X-Ray 07/26/24 19:22 Exam(s): XR HIP + PELVIS, 1 view EXAM: XR Left Hip With Pelvis When Performed, 2 or 3 Views CLINICAL HISTORY: hip fx. TECHNIQUE: Two or three views of the left hip with pelvis when performed. COMPARISON: No relevant prior studies available. FINDINGS: Bones/joints: Bilateral hip arthroplasties noted. No pelvic bone fracture identified. The left femoral stem component is well-seated in the proximal femur. There is a fracture involving the intertrochanteric region on the lateral projection image anteriorly and posteriorly. The intramedullary component extends 13.5 cm beyond the margin of the fracture. No dislocation. Soft tissues: Unremarkable. Incidental regional arterial calcification. IMPRESSION: 1. The left femoral stem component is well-seated in the proximal femur. There is a fracture involving the intertrochanteric region on the lateral projection image anteriorly and posteriorly. The intramedullary component extends 13.5 cm beyond the margin of the fracture. 2. Bilateral total hip arthroplasties. No dislocation. No pelvic bone fractures. Electronically signed by: Edwin Prabhakar MD 07/26/24 21:[address] 07/26/24 21:07 Exam(s): CT LEFT HIP Without Contrast EXAM: CT Left Lower Extremity Without Intravenous Contrast, Hip CLINICAL HISTORY: fall, hip fracture, hardware. TECHNIQUE: Axial computed tomography images of the left hip without intravenous contrast. Automated exposure control was utilized for the study. A dose lowering technique was utilized adhering to the principles of ALARA. COMPARISON: No relevant prior studies available. FINDINGS: Bones/joints: A left total hip arthroplasty is noted. There is a fracture involving the anterior cortex of the proximal femoral metaphysis. The intramedullary component is well-seated without loosening. The intramedullary femoral stem component extends approximately 10 cm distal to the margin of the fracture (series 300; image 29). The femoral head component is well aligned with the acetabular component the acetabular component is intact. No definite left pelvic bone fracture. Soft tissues: No significant overlying soft tissue traumatic injury. No radiopaque foreign body or subcutaneous emphysema. IMPRESSION: A left total hip arthroplasty is noted. There is a fracture involving the anterior cortex of the proximal femoral metaphysis. The intramedullary component is well-seated without loosening. The intramedullary femoral stem component extends approximately 10 cm distal to the margin of the fracture (series 300; image 29). Electronically signed by: Edwin Prabhakar MD 07/26/24 22:23 PM Chest X-Ray 07/27/24 08:06 XR chest 1V portable HISTORY: 84 years-old Male preop? Preoperative exam. COMPARISON: None TECHNIQUE: AP view the chest FINDINGS: Cardiomediastinal and hilar silhouettes are within normal limits. No pneumothorax, pleural effusion, airspace consolidation or overt pulmonary edema. There is mild coarsening of interstitium which is likely on a chronic basis. Spondylitic spurring of the spine. IMPRESSION: No acute process. ACT 112: Negative or not required by law. The above report was generated using voice recognition software. It may contain grammatical, syntax or spelling errors. Electronically signed by: Stephon Ceballos M.D. 07/27/2024 8:36 AM Femur X-Ray 07/27/24 12:39 XR femur LT 2V routine CLINICAL HISTORY: pain TECHNIQUE: 2 radiographic views of the left femur were obtained. Comparison: Comparison is made to hip radiograph 07/26/2024 FINDINGS: There is no evidence of an acute fracture. Bilateral hip arthroplasties are seen. Vascular calcifications are noted. IMPRESSION: Bilateral hip arthroplasties are seen. No acute fracture. ACT 112: Negative or not required by law. Electronically signed by: Nahid Barboza M.D. 07/27/2024 1:55 PM (1) Trochanteric fracture of left femur Encounter type: initial encounter Fracture type: closed Qualified Code(s): S72.102A - Unspecified trochanteric fracture of left femur, initial encounter for closed fracture
[2024-07-28] MEDS: HYDROmorphone INJ 0.5 MG/0.5 ML SYR IV PRN (13:37)
[2024-07-28] MEDS ORDERED: oxyCODONE HCL IR 5 MG TAB (IMMEDIATE RELEASE) PO PRN (14:01)
--- NOTE | 2024-07-28 14:06 | Hospitalist Progress Note ---
Date of Service July 28, 2024 Assessment & Plan (1) Closed fracture of left hip: Plan: 84 yo M w/ PMH of HTN, factor V deficiency, DVTs, BPH, HLD, hypothyroidism presents with mechanical fall and found to have a left periprosthetic fracture. Patient did not hit his head. Before this episode he was ambulating okay. He is being managed for the following: Closed fracture of left hip Status post mechanical fall Admitting CT scan of the left hip with fracture involving anterior cortex of the proximal femur, intramedullary component is well-seated without loosening. Continue with pain management, continue bowel regimen. Given history of factor V deficiency, resumed Xarelto from 07/27 PM with close monitoring of H&H. Discussed with orthopedics 07/27, partial weight-bear approximately 50% using crutches or walker. No operative intervention at this time. PT/OT, possible DC to rehab. Follow-up with Ortho on discharge. c/ w pain Mx, Hb appears stable/slight downtrend. f/u [facility] in am. Acute UTI: c/w rocephin 07/27. follow urine c/s. Chronic kidney disease: Unknown status and unknown baseline. Admitting creatinine of 2.0, creatinine today 1.50. Will continue to follow creatinine daily or as needed. Other chronic medical conditions: Continue with/resume home meds as when able. Hypertension, continue home amlodipine BPH, continue home Flomax and finasteride Hyperlipidemia, continue home fenofibrate Hypothyroidism, continue home Synthroid Factor V deficiency, continue Xarelto DVT prophylaxis: Patient on Xarelto, monitor H&H. Disposition: PT/OT, CM to assist with DC planning. [facility] Full code Admission and Anticipated Discharge Date Admission Date: July 26, 2024 Subjective Patient was seen and examined at bedside. Patient was lying in bed, on room air, NAD. Patient reports left hip pain ongoing, denies any febrile illness or flulike illness in the recent past. Patient denies any sore throat or chest pain or shortness of breath. pt does complain pain and burn w/ passing urine since last evening. Physical Exam Physical Exam: General- Not in distress Head- atraumatic Eyes- PERRL, EOMI. ENT- oropharynx clear Neck- supple, no JVD, no adenopathy. Lungs- clear to auscultation no wheezing or crackles Heart- regular rate and rhythm; no murmur, no gallop. Abdomen- normal bowel sounds, soft, nontender, no distension Extremities- no pretibial edema,no erythema seen, painful left leg movements Neuro- alert, oriented PERRL, EOMI; no facial palsy; no dysarthria; Results & Data Results & Data Vital Signs (Past 12 Hours) Vital Signs Temp Pulse Resp BP Pulse Ox O2 Del Method 07/28/24 07:35 Room Air 07/28/24 07:33 36.8 C 63 18 131/72 97 Room Air
[2024-07-28] MEDS: ACETAMINOPHEN 325 MG TAB PO SCH (15:38)
[2024-07-28 19:53] VITALS: RESP 16
[2024-07-29 07:10] LABS: Hematocrit (blood only) 39.9 % (42.0-52.0); Hemoglobin 13.6 g/dl (14.0-18.0)
[2024-07-29 07:30] LABS: BUN Creatinine Ratio 18.4 (10-20); Calcium 8.5 mg/dl (8.6-10.3); Creatinine Clr Calc Pharmacy 43.8 ml/min; Potassium 3.8 mmol/L (3.5-5.1)
--- NOTE | 2024-07-29 12:26 | Orthopedic Progress Note ---
Date of Service July 29, 2024 Assessment & Plan (1) Trochanteric fracture of left femur: Plan: No surgical intervention is required. Continue PWB (50%)weightbearing on the leg. PT/OT. He will likely require placement at a nursing home facility or rehab hospital. He is unsure if this should be done closer to home in [place] or here locally. Continue with ice on the area. Continue with oral pain medication. Continue Xarelto Continue his usual total precautions. Continue care per Hospitalist service Admission and Anticipated Discharge Date Admission Date: July 26, 2024 Subjective Complained having difficulty with PWB Physical Exam Physical Exam: LLE: Sensation to light touch intact. BCR < 2 sec. Wiggling toes and ankle. Calf soft and non-tender. Results & Data Vital Signs (Past 12 Hours) Vital Signs Temp Pulse Resp BP Pulse Ox O2 Del Method 07/29/24 07:55 Room Air 07/29/24 07:44 36.7 C 59 L 16 157/61 H 97 Room Air Laboratory Results 07/29/24 Range/Units 06:01 Hgb 13.6 L (14.0-18.0) g/dl Hct 39.9 L (42.0-52.0) % Sodium 137 (136-145) mmol/L Potassium 3.8 (3.5-5.1) mmol/L Chloride 101 (98-107) mmol/L Carbon Dioxide 29 (21-32) mmol/L Anion Gap 7 (3-11) BUN 26 H (6-23) mg/dl Creatinine 1.41 H (0.6-1.4) mg/dl Est Cr Clr Drug Dosing 43.8 ml/min eGFR 48.84 BUN/Creatinine Ratio 18.4 (10-20) Glucose 99 (70-99(Fasting)) mg/dl Calcium 8.5 L (8.6-10.3) mg/dl (1) Trochanteric fracture of left femur Encounter type: initial encounter Fracture type: closed Qualified Code(s): S72.102A - Unspecified trochanteric fracture of left femur, initial encounter for closed fracture
--- NOTE | 2024-07-29 13:08 | Discharge Summary ---
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 Patient did not hit his head. Has significant pain on moving his left hip. Denies any headache. No sore throat or cough. Afebrile. No nausea. No chest pain or shortness of breath. No abdominal pain. Normal bowel and bladder movements. Before this episode he was ambulating okay. Past medical history. As mentioned above Past surgical history. Bilateral hip surgeries Social history. Smokes cigars 1 or 2 daily for many years. Drinks 1 beer every day. Family history. Father had diabetes and heart disease. Admission Exam Per Admitting Provider General- Not in distress Head- atraumatic Eyes- PERRL, EOMI. ENT- oropharynx clear Neck- supple, no JVD, no adenopathy. Lungs- clear to auscultation no wheezing or crackles Heart- regular rate and rhythm; no murmur, no gallop. Abdomen- normal bowel sounds, soft, nontender, no distension Extremities- no pretibial edema,no erythema seen, painful left leg movements Neuro- alert, oriented PERRL, EOMI; no facial palsy; no dysarthria; Principal Diagnosis Closed fracture of left hip Status post mechanical fall Acute UTI Discharge Exam General- Not in distress Head- atraumatic Eyes- PERRL, EOMI. ENT- oropharynx clear Neck- supple, no JVD, no adenopathy. Lungs- clear to auscultation no wheezing or crackles Heart- regular rate and rhythm; no murmur, no gallop. Abdomen- normal bowel sounds, soft, nontender, no distension Extremities- no pretibial edema,no erythema seen, painful left leg movements Neuro- alert, oriented PERRL, EOMI; no facial palsy; no dysarthria; Discharge Data Allergies Allergy/AdvReac Type Severity Reaction Status Date / Time No Known Allergies Allergy Unverified 07/26/24 23:29 Consultations 07/26/24 21:15 ED Decision to Admit Stat Ordered Studies 07/26/24 21:07 CT hip LT wo con Stat Hospital Course (1) Closed fracture of left hip: 84 yo M w/ PMH of HTN, factor V deficiency, DVTs, BPH, HLD, hypothyroidism presents with mechanical fall and found to have a left periprosthetic fracture. Patient did not hit his head. Before this episode he was ambulating okay. He was managed for the following: Closed fracture of left hip Status post mechanical fall Admitting CT scan of the left hip with fracture involving anterior cortex of the proximal femur, intramedullary component is well-seated without loosening. Continue with pain management, continue bowel regimen. Given history of factor V deficiency, resumed Xarelto from 07/27 PM with close monitoring of H&H. Discussed with orthopedics 07/27, partial weight-bear approximately 50% using crutches or walker. No operative intervention at this time. PT/OT, possible DC to rehab. Follow-up with Ortho on discharge. c/ w pain Mx, Hb appears stable/slight uptrend. f/u [facility] in a week time of discharge. Acute UTI: c/w rocephin 07/27. follow urine c/s. To p.o. antibiotic on discharge to complete the course. Chronic kidney disease: Unknown status and unknown baseline. Admitting creatinine of 2.0, creatinine today 1.50. Cr appears stable around 1.5. Other chronic medical conditions: Continue with/resume home meds as when able. Hypertension, continue home amlodipine BPH, continue home Flomax and finasteride Hyperlipidemia, continue home fenofibrate Hypothyroidism, continue home Synthroid Factor V deficiency, continue Xarelto DVT prophylaxis: Patient on Xarelto, monitor H&H. Disposition: PT/OT, CM to assist with DC planning. Full code Patient is being discharged to [facility] with following instruction at the point of discharge: Follow-up with your primary care physician within a week time and likely you will need labs CBC/CMP/magnesium/phosphorus. You will be discharged on antibiotic to complete the course for UTI. Continue with physical therapy at rehab facility. You will need to follow-up with orthopedics in 2 to 4 weeks time upon discharge. Continue to take bowel regimen with a goal of 1-2 bowel movements a day while you are on opiate pain medication. Take your medications as prescribed. Please make sure that you are able to get your medications today by calling your pharmacy before you leave the hospital so that your treatment continuity is not broken. Home Health Attestation I certify that this patient is under my care and that I, or a physicians janitorial assistant working with me, had a face to-face encounter that meets the home health [id number] encounter requirements with this patient. The encounter with the patient was in whole, or in part, for the following medical condition, which is the primary reason for home health care (list medical condition): I certify that, based on my findings, the following services are medically necessary home health services: My clinical findings support the need for the above services because: Further, I certify that my clinical findings support that this patient is homebound (i.e. absences from home require considerable and taxing effort and are for medical reasons or druze services or infrequently or of short duration when for other reasons) because: Certification for Home Health Services: Based on the above findings, I certify that this patient is confined to the home and needs intermittent intermediate care, physical therapy and/or speech therapy or continues to need occupational therapy. The patient is under my care, and I have initiated the establishment of the plan of care. This patient will be followed by a physician who will periodically review the plan of care. Total Time Total Time Spent Total Time Spent (In Minutes): 35 Discharge Plan Discharge Items Patient Disposition: Transfer Inpatient Rehab Fac Reason For Visit: FALL, LEFT HIP FRACTURE? Discharge Diagnosis: Closed fracture of left hip Status post mechanical fall Acute UTI Activity: As commented below Activity Comment: Continue with PT/OT at rehab. Non-emergency contact: Primary Care Provider Call non-emergency contact if: you have any medication questions, your symptoms worsen and your temperature is above 101 Follow-up/Referrals: Blaire Urbina MD [Primary Care Provider] - Diet: Heart Healthy Addtl Attending Provider Instructions: Follow-up with your primary care physician within a week time and likely you will need labs CBC/CMP/magnesium/phosphorus. You will be discharged on antibiotic to complete the course for UTI. Continue with physical therapy at rehab facility. You will need to follow-up with orthopedics in 2 to 4 weeks time upon discharge. Continue to take bowel regimen with a goal of 1-2 bowel movements a day while you are on opiate pain medication. Take your medications as prescribed. Please make sure that you are able to get your medications today by calling your pharmacy before you leave the hospital so that your treatment continuity is not broken. Pending Studies at Discharge: No Stand-Alone Forms: My [facility] Skilled Items Patient informed of condition?: Yes DNR: No Discharge Level of Care: Acute rehab Communicable Disease: No Discharge Prognosis: Stable Lines: None Urinary Catheter: No Medications and DC Order Prescriptions: New oxycodone 5 mg Tablet 5 mg PO Q6H PRN (Reason: pain) 5 Days Qty: 20 0RF docusate sodium 100 mg Capsule 100 mg PO BID PRN (Reason: constipation) Qty: 20 0RF Advanced Probiotic 625 mg (10 billion cell) Capsule 1 cap PO DAILY 7 Days Qty: 7 0RF cefdinir 300 mg capsule 300 mg PO BID 5 Days Qty: 10 0RF Continued amlodipine [Norvasc] 10 mg Tablet 5 mg PO DAILY Rx Instructions: family unsure of dose fenofibrate micronized 134 mg capsule 134 mg PO DAILY Rx Instructions: Pt takes med in the afternoon levothyroxine 100 mcg tablet 100 mcg PO DAILY tamsulosin 0.4 mg capsule 0.4 mg PO BID Rx Instructions: 1 capsule with lunch 1 capsule with dinner Xarelto 10 mg tablet 10 mg PO HS Rx Instructions: Pt states he takes med with dinner. finasteride 5 mg tablet 5 mg PO DAILY Discharge Orders: Discharge Order (Routine); Ordered 07/29/24 Ordered By: Charlie Galaviz Admission Data Admit Date/Time: 07/26/24 21:56 Attending Provider: Charlie Galaviz Admit Provider: Nolberto Angeles Primary Care Provider: Blaire Urbina Other Providers: Nolberto Angeles; [facility]
[2024-07-29 14:54] VITALS: BP 115/64; PULSE 58; TEMP 98.2; O2SAT 96
== END 2024-07-29 19:20 | DRG 536 ==
LOC: ED 19:12 → 3W 21:56
DX: W18.09XA Striking against other object with subsequent fall, initial encounter; Y92.019 Unspecified place in single-family (private) house as the place of occurrence of the external cause; N39.0 Urinary tract infection, site not specified; Z86.72 Personal history of thrombophlebitis; Z79.01 Long term (current) use of anticoagulants; E78.5 Hyperlipidemia, unspecified; D68.2 Hereditary deficiency of other clotting factors; N40.0 Benign prostatic hyperplasia without lower urinary tract symptoms; Z79.890 Hormone replacement therapy; M97.8XXA Periprosthetic fracture around other internal prosthetic joint, initial encounter; F17.290 Nicotine dependence, other tobacco product, uncomplicated; S72.142A Displaced intertrochanteric fracture of left femur, initial encounter for closed fracture; E03.9 Hypothyroidism, unspecified; Z96.643 Presence of artificial hip joint, bilateral; I12.9 Hypertensive chronic kidney disease with stage 1 through stage 4 chronic kidney disease, or unspecified chronic kidney disease; N18.9 Chronic kidney disease, unspecified